=== PATIENT | female | born 1955 | race Caucasian/White ===

== ENCOUNTER 2020-07-28 20:14 | Observation (INO) | payer MEDICARE ==
[~2020-07-28] VITALS: Ht 162.6 cm; Wt 76.5 kg
[2020-07-28 21:36] LABS: BASOPHILS % (AUTO) 0 % (0-1); EOSINOPHILS % (AUTO) 0 % (1-7); LYMPHOCYTES % (AUTO) 7 % (22-44); MEAN CORPUSCULAR HEMOGLOBIN 30.4 pg (27.0-34.8); MEAN CORPUSCULAR HGB CONC 33.9 g/dL (32.4-35.8); MEAN PLATELET VOLUME 8.4 fL (7.4-10.4); MONOCYTES % (AUTO) 6 % (2-9); NEUTROPHILS % (AUTO) 87 % (42-75); PLATELET COUNT 188 x10^3/uL (130-400); RED BLOOD COUNT 4.91 x10^6/uL (3.82-5.3); RED CELL DISTRIBUTION WIDTH 14.3 % (9.6-15.2)
[2020-07-28 21:46] LABS: ALBUMIN 4.3 g/dL (3.4-5.0); ANION GAP 12 mmol/L (5-15); CALCIUM 9.9 mg/dL (8.5-10.1); CHLORIDE 106 mmol/L (98-107); CREATININE 1.79 mg/dL (0.55-1.02)
[2020-07-28 21:49] LABS: ALANINE AMINOTRANSFERASE 52 U/L (12-78); ALKALINE PHOSPHATASE 55 U/L (45-117); BILIRUBIN,TOTAL 0.5 mg/dL (0.2-1.0); TOTAL PROTEIN 8.4 g/dL (6.4-8.2)
--- NOTE | 2020-07-28 23:11 | NUR ---
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
[2020-07-28] MEDS ORDERED: ONDANSETRON 2MG/ML, 2ML ONE (23:47)
[2020-07-28] MEDS ORDERED: MORPHINE SULFATE 4 MG/ML, 1ML ONE (23:47)
[2020-07-28] MEDS: MORPHINE SULFATE 4 MG/ML, 1ML IVPush PRN (23:53)
[2020-07-29] MEDS ORDERED: ONDANSETRON 2MG/ML, 2ML IVPush ONE
[2020-07-29] MEDS ORDERED: SODIUM CHLORIDE FLUSH 10ML SYR IVF ONE
[2020-07-29] MEDS ORDERED: SODIUM CHLORIDE 0.9% 1,000ML IVBOLUS ONE
[2020-07-29 00:53] LABS: MICROSCOPIC INDICATED
--- NOTE | 2020-07-29 01:50 | NUR ---
Straight cath via sterile technique, sent to lab.
[2020-07-29] MEDS ORDERED: CEFTRIAXONE 1,000 MG in DEXTROSE 5% 50 ML IVPB ONE (02:00)
[2020-07-29 02:01] LABS: MICROSCOPIC INDICATED
--- NOTE | 2020-07-29 02:24 | NUR ---
PER DR OAKLEY, NO BLOOD CULTURES BEFORE ABX
[2020-07-29] MEDS ORDERED: MORPHINE SULFATE 4 MG/ML, 1ML ONE (02:28)
[2020-07-29] MEDS: MORPHINE SULFATE 4 MG/ML, 1ML IVPush PRN (02:31)
--- NOTE | 2020-07-29 02:36 | NUR ---
ABX STARTED. PT MEDICATED FOR PAIN A SECOND TIME. PT EDUCATED ABOUT NPO STATUS. PROVIDED [employer]OU[employer] SWABS.
[2020-07-29] MEDS ORDERED: DONE5TAB7 PO (03:15)
[2020-07-29] MEDS ORDERED: OLME-7 PO (03:15)
[2020-07-29] MEDS ORDERED: METF500T PO (03:15)
[2020-07-29] MEDS ORDERED: SIMV20TA19 PO (03:15)
[2020-07-29] MEDS ORDERED: BISACODYL 10 MG SUPP PR PRN (03:30)
[2020-07-29] MEDS ORDERED: ONDANSETRON 2MG/ML, 2ML IVPush PRN ×2 (03:30→12:30)
[2020-07-29] MEDS ORDERED: morphine SULFATE 10 MG/ML, 1ML IVPush PRN (03:30)
[2020-07-29] MEDS ORDERED: LABETALOL 5MG/ML, 20ML IVPush PRN (03:30)
[2020-07-29 03:44] VITALS: BP 138/83
[2020-07-29] MEDS: SODIUM CHLORIDE 0.9% 1,000 ML IV SCH ×3 (04:02→23:08)
[2020-07-29] MEDS: KETOROLAC 30 MG/1 ML IV PRN ×3 (04:11→18:31)
[2020-07-29] MEDS ORDERED: ASPI-191 PO (05:41)
[2020-07-29 06:49] VITALS: BP 123/72
[2020-07-29] MEDS ORDERED: CHLORHEXIDINE 15 ML UDC ONE (11:42)
[2020-07-29] MEDS ORDERED: CHLORHEXIDINE 15 ML UDC PO ONE (12:00)
[2020-07-29] MEDS ORDERED: FENTANYL PF 100 MCG/2ML ONE (12:02)
[2020-07-29] MEDS ORDERED: MIDAZOLAM 1 MG/ML, 2ML ONE (12:02)
[2020-07-29] MEDS ORDERED: OMNIPAQUE 350 MG/ML, 50 ML BOTTLE ONE (12:05)
[2020-07-29] MEDS ORDERED: EPHEDRINE 50 MG/ML, 1ML ONE (12:10)
[2020-07-29] MEDS ORDERED: HYDROmorphone 1 MG/ML, 1ML INJ IVPush PRN (12:30)
[2020-07-29] MEDS ORDERED: OXYcodone 5 MG/5 ML ORAL.SOL UDC PO PRN (12:30)
[2020-07-29] MEDS ORDERED: FENTANYL PF 100 MCG/2ML IV PRN (12:30)
[2020-07-29] MEDS ORDERED: PROMETHAZINE 25 MG/ML, 1ML IVPush PRN (12:30)
[2020-07-29] MEDS ORDERED: MEPERIDINE/PF 25MG/0.5ML IVPush PRN (12:30)
[2020-07-29] MEDS ORDERED: HYDROcodone/APAP 7.5-325MG/15ML UDC PO PRN (12:30)
[2020-07-29] MEDS ORDERED: ONDANSETRON 2MG/ML, 2ML ONE (12:46)
[2020-07-29] MEDS ORDERED: DEXAMETHASONE 4 MG/ML, 1ML ONE (12:46)
[2020-07-29] MEDS ORDERED: PROPOFOL 10 MG/ML, 20ML ONE (12:46)
[2020-07-29] MEDS ORDERED: CEFAZOLIN 1,000 MG ONE (12:46)
[2020-07-29] MEDS ORDERED: MEPERIDINE/PF 25MG/ML,1ML ONE (13:35)
[2020-07-29 18:20] VITALS: BP 127/71
[2020-07-29] MEDS ORDERED: CEFTRIAXONE 2 GM in DEXTROSE 5% 50 ML IVPB SCH (23:00)
[2020-07-30 01:35] VITALS: BP 120/63
[2020-07-30] MEDS: KETOROLAC 30 MG/1 ML IV PRN (05:03)
[2020-07-30 05:39] LABS: BASOPHILS % (AUTO) 0 % (0-1); EOSINOPHILS % (AUTO) 0 % (1-7); LYMPHOCYTES % (AUTO) 6 % (22-44); MEAN CORPUSCULAR HEMOGLOBIN 31.4 pg (27.0-34.8); MEAN CORPUSCULAR HGB CONC 34.6 g/dL (32.4-35.8); MONOCYTES % (AUTO) 4 % (2-9); NEUTROPHILS % (AUTO) 89 % (42-75); PLATELET COUNT 156 x10^3/uL (130-400); RED BLOOD COUNT 3.92 x10^6/uL (3.82-5.3); RED CELL DISTRIBUTION WIDTH 14.4 % (9.6-15.2)
[2020-07-30 05:47] LABS: ANION GAP 8 mmol/L (5-15); CALCIUM 8.3 mg/dL (8.5-10.1); CHLORIDE 110 mmol/L (98-107)
[2020-07-30 05:49] LABS: CREATININE 1.57 mg/dL (0.55-1.02)
[2020-07-30 07:02] VITALS: BP 136/73
[2020-07-30 12:43] VITALS: BP 135/75
[2020-07-30] MEDS ORDERED: OXYB5TAB10 PO (12:55)
== END 2020-07-30 15:38 | disposition home or self-care (01) ==
LOC: ED 23:45 → OBSVTOIN 07-29 02:56 → INTOOBSV 07-29 02:56 → EDIP 07-29 02:56 → 4NW 07-29 03:32
PROVIDERS: ADMIT Internal Medicine; ATTEND Internal Medicine
DX: N13.2 Hydronephrosis with renal and ureteral calculous obstruction (principal); Z20.822 Contact with and (suspected) exposure to COVID-19; Q60.0 Renal agenesis, unilateral; N39.0 Urinary tract infection, site not specified; N17.9 Acute kidney failure, unspecified; K57.90 Diverticulosis of intestine, part unspecified, without perforation or abscess without bleeding; D72.829 Elevated white blood cell count, unspecified; E11.65 Type 2 diabetes mellitus with hyperglycemia; G47.33 Obstructive sleep apnea (adult) (pediatric); I10 Essential (primary) hypertension; E78.5 Hyperlipidemia, unspecified; Z79.899 Other long term (current) drug therapy; Z87.442 Personal history of urinary calculi; Z79.82 Long term (current) use of aspirin
CPT/HCPCS: 36415; 52352; 52356; 74018; 74176; 80048; 80053; 81001; 82360; 85025; 87086; 87635; 88300; 93005; 96361; 96365; 96366; 96375; 96376; 99285; C1758; C1769; C2617; G0378; J0690; J0696; J1100; J1885; J2175; J2250; J2270; J2405; J2704; J3010; J7030; Q9967; 76000